=== PATIENT | female | born 1975 | race African-American/Black ===

== ENCOUNTER 2019-01-20 10:41 | Emergency (ER) | payer SELFPAY ==
[~2019-01-20] VITALS: Ht 167.6 cm; Wt 106.8 kg
[2019-01-20 11:39] VITALS: BP 138/74
[2019-01-20] MEDS ORDERED: BACITRACIN 0.9 GM PACKET OINTMENT TP ONE (11:45)
[2019-01-20 11:59] LABS: BASOPHILS % (AUTO) 0.5 % (0.0-2.0); EOSINOPHILS % (AUTO) 2.4 % (1.0-6.0); HEMATOCRIT 36.8 % (36-46); HEMOGLOBIN 11.7 g/dL (12.0-16.0); LYMPHOCYTES # (AUTO) 1.7 K/uL (1.0-4.8); LYMPHOCYTES % (AUTO) 19.2 % (22.0-44.0); MEAN CORPUSCULAR HEMOGLOBIN 27.5 pg (26.0-34.0); MEAN CORPUSCULAR HGB CONC 31.9 G/dL (31.0-37.0); MEAN CORPUSCULAR VOLUME 86 fL (80-100); MONOCYTES # (AUTO) 0.3 K/uL (0.1-1.0); MONOCYTES % (AUTO) 3.4 % (2.0-9.0); NEUTROPHILS # (AUTO) 6.5 K/uL (1.8-7.7); NEUTROPHILS % (AUTO) 74.5 % (40.0-70.0); PLATELET COUNT (AUTO) 282 K/uL (150-450); RED BLOOD CELL COUNT(AUTO) 4.27 MIL/uL (4.00-5.20)
[2019-01-20 12:07] LABS: ANION GAP 9 mmol/L (8-16); CALCIUM, TOTAL 8.7 mg/dL (8.8-10.5); CARBON DIOXIDE 25 mmol/L (22-29); CHLORIDE 103 mmol/L (98-107); CREATININE 0.83 mg/dL (0.60-1.30); GLOMERULAR FILTR. RATE CALC > 60 mL/min (>60); GLUCOSE,RANDOM 118 mg/dL (70-110); POTASSIUM 3.5 mmol/L (3.5-5.1); SODIUM SERUM 137 mmol/L (136-145); UREA NITROGEN, BLOOD 6 mg/dL (7-18)
[2019-01-20 12:23] LABS: HCG,QUANTITATIVE < 1 mIU/mL (0-6)
== END 2019-01-20 12:43 | disposition home or self-care (01) ==
LOC: EMS 10:44
DX: R60.0 Localized edema (principal); L24.89 Irritant contact dermatitis due to other agents